=== PATIENT | female | born 1990 | race African-American/Black ===

== ENCOUNTER 2024-02-11 14:02 | Emergency (ER) | payer MEDICAID ==
[2024-02-11 14:39] LABS: BASOPHILS # (AUTO) 0.1 10^3/uL (0.0-0.1); BASOPHILS % (AUTO) 0.6 %; EOSINOPHILS # (AUTO) 0.1 10^3/uL (0.0-0.7); EOSINOPHILS % (AUTO) 1.3 %; HCT - HEMATOCRIT 33.3 % (37.0-47.0); HGB - HEMOGLOBIN 9.8 g/dL (12.0-16.0); LYMPHOCYTES # (AUTO) 3.3 10^3/uL (1.5-3.5); LYMPHOCYTES % (AUTO) 41.6 %; MEAN CORPUSCULAR HEMOGLOBIN 19.5 pg (27.0-31.0); MEAN CORPUSCULAR HGB CONC 29.4 g/dL (32.0-36.0); MEAN CORPUSCULAR VOLUME 66.2 fL (81.0-99.0); MEAN PLATELET VOLUME 9.4 fL (7.9-10.8); MONOCYTES # (AUTO) 0.5 10^3/uL (0.0-1.0); MONOCYTES % (AUTO) 6.6 %; NEUTROPHILS # (AUTO) 3.9 10^3/uL (1.5-6.6); NEUTROPHILS % (AUTO) 49.6 %; PLT - PLATELET COUNT 292 10^3/uL (130-450); RED BLOOD COUNT 5.03 10^6/uL (4.20-5.40); RED CELL DISTRIBUTION WIDTH 20.3 % (12.0-15.0); WHITE BLOOD COUNT 7.9 x10^3/uL (4.8-10.8)
[2024-02-11 14:41] LABS: SLIDE REVIEW? Indicated
--- NOTE | 2024-02-11 14:49 | ED Physician Documentation ---
PD HPI ABD PAIN - Stated complaint Stated Complaint: LOPEZ,ABD/BACK PX - Chief complaint Chief Complaint: Abd Pain - History obtained from History obtained from: Patient - History of Present Illness Timing - onset: How many weeks ago (1) Timing - duration: Weeks (1) Timing - details: Gradual onset, Still present, Waxing and waning Quality: Cramping, Aching, Pain Associated symptoms: Vaginal bleeding (spotting, with her menses having ended 5 days ago then started up again with light bleeding.), Vaginal dc Review of Systems Constitutional: denies: Fever, Chills : reports: Discharge, Irregular menses. 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 - Present Medications Home Medications: Ambulatory Orders Medication Instructions Recorded Confirmed Ferrous Gluconate 324 mg PO DAILY #30 tablet 02/11/24 Meloxicam [Mobic] 7.5 mg PO BID 10 Days #20 tablet 02/11/24 Norgestimate-Ethinyl Estradiol 1 each PO DAILY #1 each 02/11/24 [Ortho Tri-Cyclen 28 Tablet] metroNIDAZOLE [Flagyl] 500 mg PO BID 10 Days #20 tablet 02/12/24 - Allergies Allergies/Adverse Reactions: Allergies Allergy/AdvReac Type Severity Reaction Status Date / Time No Known Drug Allergies Allergy Verified 02/11/24 14:26 - Social History Does the pt smoke?: No Smoking Status: Never smoker PD ED PE NORMAL - Vitals Vital signs reviewed: Yes - General General: Alert and oriented X 3, No acute distress, Well developed/nourished - Cardiac Cardiac: RRR, No murmur - Respiratory Respiratory: No respiratory distress, Clear bilaterally - Abdomen Abdomen: Normal bowel sounds, Soft, Non distended, Other (some tender suprapubic area midline. ) - Derm Derm: Normal color, Warm and dry Results - Vitals Vitals: Vital Signs - 24 hr 02/11/24 17:33 Heart Rate 90 Respiratory 16 Rate Blood Pressure 118/68 O2 Saturation 98 - Labs Labs: Laboratory Tests 02/11/24 02/11/24 02/11/24 14:35 14:35 15:01 WBC 7.9 RBC 5.03 Hgb 9.8 L Hct 33.3 L MCV 66.2 L MCH 19.5 L MCHC 29.4 L RDW 20.3 H Plt Count 292 MPV 9.4 Neut # (Auto) 3.9 Lymph # (Auto) 3.3 [place] # (Auto) 0.5 Eos # (Auto) 0.1 Baso # (Auto) 0.1 Absolute Nucleated RBC 0.00 Nucleated RBC % 0.0 Manual Slide Review Indicated Platelet Estimate NORMAL (130-450,000) Platelet Morphology NORMAL APPEARANCE RBC Morph Micro Appear 1+ SCHISTOCYTES Sodium 135 Potassium 3.7 Chloride 104 Carbon Dioxide 25 Anion Gap 6.0 BUN 8 Creatinine 0.9 Estimated GFR (MDRD) 88 L Glucose 94 Calcium 10.2 Total Bilirubin 0.2 AST 19 ALT 20 Alkaline Phosphatase 75 Total Protein 7.6 Albumin 4.3 Globulin 3.3 Albumin/Globulin Ratio 1.3 Lipase 23 Urine Color Urine Clarity Urine pH Ur Specific [place] Urine Protein Urine Glucose (UA) Urine Ketones Urine Occult Blood Urine Nitrite Urine Bilirubin Urine Urobilinogen Ur Leukocyte Esterase Urine RBC Urine WBC Ur Squamous Epith Cells Urine Bacteria Ur Microscopic Review Urine Culture Comments Urine HCG, Qual NEGATIVE C. glabrata (PCR) C. krusei (PCR) Carmella species DNA Chlam trachomat DNA PCR N.gonorrhoeae DNA (PCR) T. vaginalis (PCR) Bact Vaginosis (PCR) 02/11/24 02/11/24 02/11/24 15:01 15:47 15:47 WBC RBC Hgb Hct MCV MCH MCHC RDW Plt Count MPV Neut # (Auto) Lymph # (Auto) [place] # (Auto) Eos # (Auto) Baso # (Auto) Absolute Nucleated RBC Nucleated RBC % Manual Slide Review Platelet Estimate Platelet Morphology RBC Morph Micro Appear Sodium Potassium Chloride Carbon Dioxide Anion Gap BUN Creatinine Estimated GFR (MDRD) Glucose Calcium Total Bilirubin AST ALT Alkaline Phosphatase Total Protein Albumin Globulin Albumin/Globulin Ratio Lipase Urine Color YELLOW Urine Clarity CLEAR Urine pH 6.0 Ur Specific [place] 1.010 Urine Protein NEGATIVE Urine Glucose (UA) NEGATIVE Urine Ketones NEGATIVE Urine Occult Blood MODERATE H Urine Nitrite NEGATIVE Urine Bilirubin NEGATIVE Urine Urobilinogen 0.2 (NORMAL) Ur Leukocyte Esterase NEGATIVE Urine RBC 6-10 H Urine WBC 0-3 Ur Squamous Epith Cells MOD Squamous H Urine Bacteria Rare Ur Microscopic Review INDICATED Urine Culture Comments NOT INDICATED Urine HCG, Qual C. glabrata (PCR) NEGATIVE C. krusei (PCR) NEGATIVE Carmella species DNA NEGATIVE Chlam trachomat DNA PCR NEGATIVE N.gonorrhoeae DNA (PCR) NEGATIVE T. vaginalis (PCR) NEGATIVE TNP Bact Vaginosis (PCR) POSITIVE A - Rads (name of study) pelvic US Relevant Findings:: Prelim report reviewed, EMP independent interpretation of test (normal uterus, normal ovarian flow, no cysts, no free fluid.) PD Medical Decision Making - ED course Complexity details: reviewed results (normal chemistires. Normal WBC. negative HCG. Blood count showing anemia with low indices, so presume low iron. No report of melena. ), considered differential, d/w patient Reviewed Lab Results: US showing normal uterus, no cysts, normal ovarian flow. Subsequent vaginal testing showing BV. Sent this to her pharmacy as well, seeing that the first ones had not been picked up as yet. Will call pt to update on results. This can explain the irregular and painful uterine bleeding. Departure - Departure Disposition: 01 Home, Self Care Clinical Impression: Lower abdominal pain, Irregular menses, Bacterial vaginitis Condition: Stable Record reviewed to determine appropriate education?: Yes Prescriptions: Ferrous Gluconate 324 mg PO DAILY #30 tablet Meloxicam [Mobic] 7.5 mg PO BID 10 Days #20 tablet Norgestimate-Ethinyl Estradiol [Ortho Tri-Cyclen 28 Tablet] 1 each PO DAILY #1 e ach Comments: Stay well-hydrated. Use an anti-inflammatory such as ibuprofen 6 or milligrams 3 times a day for the next several days. I can also prescribe 1 called meloxica m twice daily for the next 7 to 10 days. Your ultrasound did not show any obvious abnormalities. Your heart rate little bit anemic on your blood count and looks likely to be iron deficiency. I will write for supplement of that as well. Your test was negative. Your urine does not show any signs of infection. To help with your irregular/prolonged period, we can start with a control packet and take 2 of the tablets per day for the first 3 days and then continue on with the 1 a day after that. Recheck if not improved over the next week or so. [facility] Forms: PCP List Discharge Date/Time: 02/11/24 17:33
[2024-02-11 14:59] LABS: ALBUMIN 4.3 g/dL (3.2-5.5); ALBUMIN/GLOBULIN RATIO 1.3 (1.0-2.2); BILIRUBIN,TOTAL 0.2 mg/dL (0.2-1.0); CALCIUM 10.2 mg/dL (8.5-10.3); CREATININE 0.9 mg/dL (0.6-1.3); POTASSIUM 3.7 mmol/L (3.5-4.5); TOTAL PROTEIN 7.6 g/dL (6.4-8.9)
[2024-02-11 15:12] LABS: BILIRUBIN,URINE NEGATIVE (NEGATIVE); GLUCOSE, URINE (UA) NEGATIVE (NEGATIVE); KETONES,URINE (UA) NEGATIVE (NEGATIVE); LEUKOCYTE ESTERASE, URINE NEGATIVE (NEGATIVE); NITRITE,URINE NEGATIVE (NEGATIVE); OCCULT BLOOD,URINE MODERATE (NEGATIVE); PROTEIN,URINE NEGATIVE (NEGATIVE); UROBILINOGEN,URINE 0.2 (NORMAL) E.U./dL (NORMAL)
[2024-02-11 15:17] LABS: CLARITY,URINE CLEAR (CLEAR); HCG UR QUAL NEGATIVE
[2024-02-11 15:19] LABS: BACTERIA,URINE Rare /HPF (None Seen); SQUAMOUS EPITHELIAL CELL,UR MOD Squamous (<= Few); WBC,URINE 0-3 /HPF (0-5)
[2024-02-11] MEDS ORDERED: KETOROLAC 30 MG/ML VIAL IVP STA (15:20)
[2024-02-11 15:24] LABS: PLATELET ESTIMATE, MANUAL NORMAL (130-450,000) (NORMAL); PLATELET MORPHOLOGY NORMAL APPEARANCE (NORMAL)
[2024-02-11] MEDS: KETOROLAC 30 MG/ML VIAL IVP STA (16:27)
--- NOTE | 2024-02-11 17:55 | Ultrasound Report ---
PROCEDURE: Pelvic w/Transvag+Doppler Comp INDICATIONS: pelvic pain, R TECHNIQUE: Real-time scanning was performed of the pelvic organs, with image documentation. Additional endovagi nal scanning was necessary due to incomplete visualization of the adnexal and endometrial structures by transabdominal scanning. Doppler interrogation was performed of the ovaries bilaterally. COMPARISON: None. FINDINGS: Uterus: Uterus is anteverted and normal in size at 9.0 x 5.6 x 6.4 cm. The myometrium is heterog eneous. The endometrium measures 1.2 mm in combined thickness. There is trace fluid within the endo metrial canal. Ovaries: The right ovary measures 3.9 x 2.5 x 2.1 cm, with a calculated ovarian volume of 10.7 cc. The left ovary measures 3.5 x 1.4 x 1.9 cm, with a calculated ovarian volume of 4.6 cc. Appropriate blood flow to the ovaries with Doppler interrogation. Less than 12 follicles can be seen in each ov shante. No adnexal masses are seen. No cystic lesions measuring greater than 3 cm. Other: No pathologic free abdominal or pelvic fluid. There is trace fluid seen in the anterior lower uterine segment near the scar which appears to connect to fluid in the endometrial canal. IMPRESSION: No sonographic evidence of ovarian torsion. Trace fluid adjacent to the scar in the lower uterine segment extending to the endometrial canal. No adnexal masses. Reviewed by: Yamilka Ayers MD on 02/11/2024 4:54 PM BETY Approved by: Yamilka Ayers MD on 02/11/2024 4:54 PM BETY Station ID: [id number]
[2024-02-11 18:00] LABS: CHLAMYDIA TRACHOMATIS DNA NEGATIVE (NEGATIVE); NEISSERIA GONORRHOEAE DNA NEGATIVE (NEGATIVE)
[2024-02-11 18:01] VITALS: BP 118/68; O2SAT 98
[2024-02-11 18:43] LABS: BACTERIAL VAGINOSIS DNA POSITIVE (NEGATIVE); CANDIDA GLABRATA DNA NEGATIVE (NEGATIVE); CANDIDA GROUP DNA NEGATIVE (NEGATIVE); CANDIDA KRUSEI DNA NEGATIVE (NEGATIVE); TRICHOMONAS VAGINALIS DNA NEGATIVE (NEGATIVE)
== END 2024-02-11 17:33 | disposition home or self-care (01) ==
LOC: EDBD → ED 14:02
DX: R10.30 Lower abdominal pain, unspecified (principal); N76.0 Acute vaginitis
CPT/HCPCS: 36415; 80053; 81001; 81003; 81025; 81514; 83690; 85025; 87086; 87491; 87591; 87661; 93975; 96374; 99284

== ENCOUNTER 2024-06-02 11:23 | Emergency (ER) | payer MEDICAID ==
[2024-06-02 13:40] VITALS: O2SAT 100
[2024-06-02 13:41] LABS: BASOPHILS % (AUTO) 0.3 %; EOSINOPHILS # (AUTO) 0.1 10^3/uL (0.0-0.7); EOSINOPHILS % (AUTO) 0.8 %; HCT - HEMATOCRIT 34.7 % (37.0-47.0); HGB - HEMOGLOBIN 10.2 g/dL (12.0-16.0); LYMPHOCYTES # (AUTO) 2.8 10^3/uL (1.5-3.5); LYMPHOCYTES % (AUTO) 36.1 %; MEAN CORPUSCULAR HGB CONC 29.4 g/dL (32.0-36.0); MEAN CORPUSCULAR VOLUME 67.9 fL (81.0-99.0); MEAN PLATELET VOLUME 9.8 fL (7.9-10.8); MONOCYTES # (AUTO) 0.6 10^3/uL (0.0-1.0); MONOCYTES % (AUTO) 8.2 %; NEUTROPHILS # (AUTO) 4.2 10^3/uL (1.5-6.6); NEUTROPHILS % (AUTO) 54.3 %; PLT - PLATELET COUNT 317 10^3/uL (130-450); RED BLOOD COUNT 5.11 10^6/uL (4.20-5.40); RED CELL DISTRIBUTION WIDTH 18.6 % (12.0-15.0); WHITE BLOOD COUNT 7.8 x10^3/uL (4.8-10.8)
[2024-06-02 13:45] LABS: SLIDE REVIEW? Indicated
[2024-06-02 14:00] LABS: PLATELET ESTIMATE, MANUAL NORMAL (130-450,000) (NORMAL); PLATELET MORPHOLOGY NORMAL APPEARANCE (NORMAL); WBC MORPHOLOGY (MULTIPLE) NORMAL APPEARANCE (NORMAL)
[2024-06-02 14:02] LABS: ALBUMIN 4.4 g/dL (3.2-5.5); ALBUMIN/GLOBULIN RATIO 1.3 (1.0-2.2); BILIRUBIN,TOTAL 0.3 mg/dL (0.2-1.0); CALCIUM 9.8 mg/dL (8.5-10.3); CREATININE 0.8 mg/dL (0.6-1.3); POTASSIUM 3.7 mmol/L (3.5-4.5); TOTAL PROTEIN 7.7 g/dL (6.4-8.9)
--- NOTE | 2024-06-02 14:10 | ED Physician Documentation ---
History of Present Illness - Stated complaint Stated Complaint: LOPEZ, NECK PX - Chief complaint Chief Complaint: Neuro - Additonal information Additional information: 33-year-old female with no pertinent past medical history presents emergency department for left head pain. Patient says that it came on suddenly this morning around 11 AM with blurred vision she says that she has never experienced a head pain like this before she said that she tried to lay down and put a wet paper towel on her forehead to see if it would go away and it has not gotten any better so she presents to the emergency department for further evaluation she has not taken any Tylenol ibuprofen for pain or discomfort no recent illnesses no fevers or chills. Patient says that her aunt had a brain aneurysm in her 60s and this is what she was worried about when presenting to the emergency department for further evaluation. 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 - Present Medications Home Medications: Ambulatory Orders Medication Instructions Recorded Confirmed No Known Home Medications 06/02/24 06/02/24 - Allergies Allergies/Adverse Reactions: Allergies Allergy/AdvReac Type Severity Reaction Status Date / Time No Known Drug Allergies Allergy Verified 06/02/24 11:33 - Social History Does the pt smoke?: No Smoking Status: Never smoker Does the pt drink ETOH?: No Does the pt have substance abuse?: No - Immunizations Immunizations are current?: No PD ED PE NORMAL - Vitals Vital signs reviewed: Yes - General General: Alert and oriented X 3, No acute distress, Well developed/nourished - HEENT HEENT: Atraumatic, PERRL, EOMI - Neck Neck: Supple, no meningeal sign, No bony TTP - Cardiac Cardiac: RRR - Respiratory Respiratory: No respiratory distress - Abdomen Abdomen: Normal bowel sounds - Rectal Rectal: Deferred - Derm Derm: Normal color, Warm and dry, No rash - Extremities Extremities: No edema, No calf tenderness / cord - Neuro Neuro: Alert and oriented X 3, facility examiner 2-12 intact, No motor deficit, No sensory deficit, Normal speech Eye Opening: Spontaneous Motor: Obeys Commands Verbal: Oriented GCS Score: 15 - Psych Psych: Normal mood Results - Vitals Vitals: Vital Signs - 24 hr 06/02/24 06/02/24 06/02/24 11:29 13:32 15:25 Temperature 36.2 C L Heart Rate 84 68 73 Respiratory 16 18 18 Rate Blood Pressure 124/88 H 93/81 H 111/73 O2 Saturation 99 100 100 06/02/24 16:14 Temperature Heart Rate 73 Respiratory 18 Rate Blood Pressure 109/73 O2 Saturation 100 Oxygen O2 Source Room air - Labs Labs: Laboratory Tests 06/02/24 06/02/24 06/02/24 13:03 13:32 13:32 WBC 7.8 RBC 5.11 Hgb 10.2 L Hct 34.7 L MCV 67.9 L MCH 20.0 L MCHC 29.4 L RDW 18.6 H Plt Count 317 MPV 9.8 Neut # (Auto) 4.2 Lymph # (Auto) 2.8 [place] # (Auto) 0.6 Eos # (Auto) 0.1 Baso # (Auto) 0.0 Absolute Nucleated RBC 0.00 Nucleated RBC % 0.0 Manual Slide Review Indicated WBC Morphology NORMAL APPEARANCE Platelet Estimate NORMAL (130-450,000) Platelet Morphology NORMAL APPEARANCE RBC Morph Micro Appear 1+ OVALOCYTES Sodium 136 Potassium 3.7 Chloride 105 Carbon Dioxide 24 Anion Gap 7.0 BUN 8 Creatinine 0.8 Estimated GFR (MDRD) 101 Glucose 92 Calcium 9.8 Magnesium Total Bilirubin 0.3 AST 17 ALT 28 Alkaline Phosphatase 72 Total Protein 7.7 Albumin 4.4 Globulin 3.3 Albumin/Globulin Ratio 1.3 Lipase 18 Urine HCG, Qual NEGATIVE 06/02/24 14:42 WBC RBC Hgb Hct MCV MCH MCHC RDW Plt Count MPV Neut # (Auto) Lymph # (Auto) [place] # (Auto) Eos # (Auto) Baso # (Auto) Absolute Nucleated RBC Nucleated RBC % Manual Slide Review WBC Morphology Platelet Estimate Platelet Morphology RBC Morph Micro Appear Sodium Potassium Chloride Carbon Dioxide Anion Gap BUN Creatinine Estimated GFR (MDRD) Glucose Calcium Magnesium 1.7 Total Bilirubin AST ALT Alkaline Phosphatase Total Protein Albumin Globulin Albumin/Globulin Ratio Lipase Urine HCG, Qual - Rads (name of study) Head CT without Relevant Findings:: Final report received, EMP independent interpretation of test, Other (No intracranial hemorrhages or abnormalities) PD Medical Decision Making - ED course ED course: 33-year-old female presents emergency department for severe left head pain. Pain according to patient was sudden onset but does not describe it as a thunderclap headache or is the worst headache of her life. Patient says that she is very concerned about a possible aneurysm although she is completely neurologically intact have a very low suspicion for this patient says that she is not prone to getting headaches or migraines so I completed the head CT without con. Head CT without con was complete for further evaluation and no acute abnormalities are visualized. Labs are also complete she is not , normal electrolytes normal kidney function normal liver function. She does have what appears to be microcytic anemia, hemoglobin 10.2, MCV 67.9. Patient was informed of these findings and was told that she would greatly benefit from following up with her primary care provider to have further labs evaluated and repeat labs 7 for trending purposes. Pain was completely alleviated with Tylenol ibuprofen and 1 L of IV fluids. She was given strict ER return precautions told to follow-up with her primary care provider soon as possible for further evaluation. All questions answered patient is safe for discharge at this time. Departure - Departure Disposition: 01 Home, Self Care Clinical Impression: Headache Qualifiers: Headache type: unspecified Headache chronicity pattern: acute headache Intractability: not intractable Qualified Code(s): R51.9 - Headache, unspecified Instructions: ED Headache Tension Comments: Thank you for trusting us with your care. We have given you Tylenol ibuprofen as well as some IV fluids which has significantly alleviated the head pain that you are experiencing. Your head CT was found to be normal and so there is no further workup indicated at this time. Please follow-up with your primary care provider to let them know about today's ER visit and go over the labs that are attached to this discharge paperwork for possible repeat labs or other possible specialty referrals. Please come back to the ER if you are having any worsening symptoms, fevers chills or any other emergent concerning symptoms. Wishing you a speedy recovery. Forms: PCP List Discharge Date/Time: 06/02/24 16:14
[2024-06-02] MEDS: SODIUM CHLORIDE 0.9% 1,000 ML IV ONE (14:37)
[2024-06-02 14:38] LABS: HCG UR QUAL NEGATIVE
[2024-06-02] MEDS: ACETAMINOPHEN 325 MG TABLET PO STA (14:38)
[2024-06-02] MEDS: IBUPROFEN 600 MG TABLET PO STA (14:38)
--- NOTE | 2024-06-02 15:43 | CT Report ---
PROCEDURE: Head WO INDICATIONS: severe left head pain with blurred vision TECHNIQUE: Noncontrast 4.5 mm thick angled axial sections acquired from the foramen magnum to the vertex. For r adiation dose reduction, the following was used: automated exposure control, adjustment of mA and/or kV according to patient size. COMPARISON: None. FINDINGS: Image quality: Excellent. CSF spaces: Basal cisterns are patent. No extra-axial fluid collections. Ventricles are normal in size and shape. Brain: No midline shift. No intracranial masses or hemorrhage. [place]-white matter interface is norm al. Punctate calcification along the right tentorial leaflet. Skull and face: Calvarium and visualized facial bones are intact, without suspicious lesions. Sinuses: Visualized sinuses and mastoids are clear. IMPRESSION: No acute intracranial pathology. Reviewed by: Matt Canas MD on 06/02/2024 2:41 PM BETY Approved by: Matt Canas MD on 06/02/2024 2:41 PM BETY Station ID: [id number]
[2024-06-02 16:23] VITALS: BP 109/73
== END 2024-06-02 16:14 | disposition home or self-care (01) ==
LOC: ED 11:23
DX: R51.9 Headache, unspecified (principal); R79.9 Abnormal finding of blood chemistry, unspecified; Z82.3 Family history of stroke
CPT/HCPCS: 36415; 70450; 80053; 81025; 83690; 83735; 85025; 99283; 99284; A9270